=== PATIENT | female | born 1940 | race Caucasian/White ===

== ENCOUNTER 2017-07-25 11:55 | Inpatient (IN) | payer MEDICARE ==
[~2017-07-25] VITALS: Ht 167.6 cm; Wt 89.1 kg
[2017-07-25] VITALS (11 sets, daily range): BP systolic 125–141; BP diastolic 60–78; PULSE 84–96; RESP 16–24; TEMP 96.5–99.6; O2SAT 88–98
[~2017-07-25 11:55] MED LIST: ASPI81TA82 PO; METO25 PO; PRAV40TA PO
[2017-07-25] MEDS ORDERED: ONDANSETRON HCL 4 MG/2 ML VIAL IV PUSH ONE (12:45)
--- NOTE | 2017-07-25 12:59 | RADRPT ---
EXAM DATE/TIME: 07/25/2017 12:48 [place] COMPARISON: No previous studies available for comparison. INDICATIONS : Fever MEDICAL HISTORY : Hypertension. SURGICAL HISTORY : Pacemaker. Coronary artery stent. ENCOUNTER: Initial ACUITY: 2 days PAIN SCORE: 0/10 LOCATION: Bilateral chest FINDINGS: A single view of the chest demonstrates the lungs to be symmetrically aerated without evidence of mas s, infiltrate or effusion. The cardiomediastinal contours are mildly prominent. Pacer leads in right atrium and right ventricle. Osseous structures are intact. CONCLUSION: 1. No focal consolidation. Minimal basilar atelectasis. Pacer leads in right atrium and right ventric le. Cardiomegaly. Brandt Valenzuela MD on July 25, 2017 at 12:56 Board Certified Radiologist. This report was verified electronically.
[2017-07-25 13:14] LABS: AUTOMATED NEUTROPHIL # 5.4 TH/MM3 (1.8-7.7); BASOPHIL % 0.3 % (0.0-2.0); HEMOGLOBIN 13.9 GM/DL (11.6-15.3); LYMPH % 4.3 % (9.0-44.0); LYMPHOCYTE # 0.3 TH/MM3 (1.0-4.8); MEAN CELL VOLUME 82.7 FL (80.0-100.0); MEAN CORPUSCULAR HEMOGLOBIN 27.3 PG (27.0-34.0); MEAN PLATELET VOLUME 8.4 FL (7.0-11.0); MONO % 2.2 % (0.0-8.0); MONOCYTE # 0.1 TH/MM3 (0-0.9); NEUT % 93.2 % (16.0-70.0); PLATELET COUNT 314 TH/MM3 (150-450); RED BLOOD COUNT 5.08 MIL/MM3 (4.00-5.30); RED CELL DISTRIBUTION WIDTH 13.6 % (11.6-17.2); WHITE BLOOD COUNT 5.9 TH/MM3 (4.0-11.0)
--- NOTE | 2017-07-25 13:24 | PD ---
HPI Chief Complaint: GI Complaint Time Seen by Provider: 12:34 Travel History International Travel<30 days: No Contact w/Intl Traveler<30days: [place] Country Traveled to: [place] Traveled to known affect area: No History of Present Illness HPI 77-year-old female states she went on a cruise and now she's been having diarrhea, cough, congestion, nausea and general ill feeling. She denies other concurrent complaints. She states no specific known sick contacts. She denies any known fever. She feels worse when she moves around. She denies other modifying factors. Quality is cough. Severity is progressive. Duration is couple of days. PFSH Past Medical History Hx Anticoagulant Therapy: Yes (baby ASA) Cardiovascular Problems: Yes (pacemaker, HTN, stents) Diminished Hearing: No Hypertension: Yes Tetanus Vaccination: Unknown Past Surgical History Coronary Stent: Yes Pacemaker: Yes Social History Alcohol Use: No Tobacco Use: No Substance Use: No Allergies-Medications (Allergen,Severity, Reaction): Coded Allergies: No Known Allergies (Verified Adverse Reaction, Unknown, 07/25/17) Reported Meds & Prescriptions Reported Meds & Active Scripts Active Reported Aspir-81 (Aspirin) 81 Mg Tab 81 Mg PO DAILY Pravachol 40 Mg Tab 20 Mg PO DAILY Metoprolol Tartrate 25 mg (Metoprolol Tartrate) 25 Mg Tab 12.5 Mg PO BID Review of Systems Except as stated in HPI: all other systems reviewed are Neg Physical Exam Narrative GENERAL: Well-nourished, well-developed patient. Well-appearing SKIN: Warm and dry. HEAD: Normocephalic and atraumatic. EYES: No injection or drainage. ENT: No nasal drainage noted. NECK: Supple, trachea midline. CARDIOVASCULAR: Regular rate and rhythm RESPIRATORY: Breath sounds equal bilaterally. No accessory muscle use. GASTROINTESTINAL: Abdomen soft, non-tender, nondistended. EXTREMITIES: No edema. BACK: Nontender without obvious deformity. NEUROLOGICAL: Awake and alert. Motor and sensory grossly within normal limits. Normal speech. Data Data Last Documented VS Vital Signs Date Time Temp Pulse Resp B/P (MAP) Pulse Ox O2 Delivery O2 Flow Rate FiO2 07/25/17 13:39 84 16 141/78 (99) 97 Nasal Cannula 2.00 07/25/17 12:45 99.6 Orders Orders Complete Blood Count With Diff (07/25/17 12:45) Comprehensive Metabolic Panel (07/25/17 12:45) Prothrombin Time / Inr (Pt) (07/25/17 12:45) Act Partial Throm Time (Ptt) (07/25/17 12:45) Lactic Acid Sepsis Protocol (07/25/17 12:45) Magnesium (Mg) (07/25/17 12:45) Phosphorus (Po4) (07/25/17 12:45) Chest, Single Ap (07/25/17 12:45) Ecg Monitoring (07/25/17 12:45) Iv Access Insert/Monitor (07/25/17 12:45) Oximetry (07/25/17 12:45) Influenzae A/B Antigen (07/25/17 12:45) Ondansetron Inj (Zofran Inj) (07/25/17 12:45) Vancomycin Inj (Vancomycin Inj) (07/25/17 13:42) Cefepime Inj (Maxipime Inj) (07/25/17 13:42) Blood Culture (07/25/17 13:42) Sodium Chlorid 0.9% 500 Ml Inj (Ns 500 M (07/25/17 13:45) Potassium Chlor 20 Meq Premix (Kcl 20 Me (07/25/17 13:45) Admit Order (Ed Use Only) (07/25/17 14:23) Cefepime Inj (Maxipime Inj) (07/25/17 14:45) Vancomycin Consult Pharmacy (Vancomycin (07/25/17 14:45) Vancomycin Inj (Vancomycin Inj) (07/25/17 14:45) Consult Infectious Disease (07/25/17 ) Lactic Acid Sepsis Protocol (07/25/17 14:31) Metoprolol Tartrate (Lopressor) (07/25/17 21:00) Pravastatin (Pravachol) (07/25/17 21:00) Aspirin Chew (Aspirin Chew) (07/26/17 09:00) Admit To Inpatient (07/25/17 ) Vital Signs (Adult) Q4H (07/25/17 14:33) Activity Oob With Assistance (07/25/17 14:33) Maintenance Controller / Telemetry .CONTINUOUS (07/25/17 14:33) Diet Heart Healthy (07/25/17 Dinner) Sodium Chlor 0.9% 1000 Ml Inj (Ns 1000 M (07/25/17 14:33) Sodium Chloride 0.9% Flush (Ns Flush) (07/25/17 14:45) Sodium Chloride 0.9% Flush (Ns Flush) (07/25/17 21:00) Acetaminophen (Tylenol) (07/25/17 14:45) Ondansetron Inj (Zofran Inj) (07/25/17 14:45) Basic Metabolic Panel (Bmp) (07/26/17 06:00) Complete Blood Count With Diff (07/26/17 06:00) Resp Oxygen Al C Titrat 1-4 L (07/25/17 ) Case Management Consult (07/25/17 14:33) Enoxaparin Inj (Lovenox Inj) (07/25/17 14:45) Scd Bilateral/Knee High DARNELL.BID (07/25/17 14:33) [place] Bilateral/Knee High DARNELL.QSHIFT (07/25/17 14:33) Naloxone Inj (Narcan Inj) (07/25/17 14:45) Docusate Sodium-Senna (Angelica-Colace) (07/25/17 21:00) Magnesium Hydroxide Liq (Milk Of Magnesi (07/25/17 14:45) Sennosides (Senokot) (07/25/17 14:45) Bisacodyl Supp (Dulcolax Supp) (07/25/17 14:45) Lactulose Liq (Lactulose Liq) (07/25/17 14:45) Inpatient Certification (07/25/17 ) (Hub Use Only)Inp Phy Cons/Ref (07/25/17 ) Labs Laboratory Tests Test 07/25/17 13:04 White Blood Count 5.9 TH/MM3 Red Blood Count 5.08 MIL/MM3 Hemoglobin 13.9 GM/DL Hematocrit 42.0 % Mean Corpuscular Volume 82.7 FL Mean Corpuscular Hemoglobin 27.3 PG Mean Corpuscular Hemoglobin Concent 33.0 % Red Cell Distribution Width 13.6 % Platelet Count 314 TH/MM3 Mean Platelet Volume 8.4 FL Neutrophils (%) (Auto) 93.2 % Lymphocytes (%) (Auto) 4.3 % Monocytes (%) (Auto) 2.2 % Eosinophils (%) (Auto) 0.0 % Basophils (%) (Auto) 0.3 % Neutrophils # (Auto) 5.4 TH/MM3 Lymphocytes # (Auto) 0.3 TH/MM3 Monocytes # (Auto) 0.1 TH/MM3 Eosinophils # (Auto) 0.0 TH/MM3 Basophils # (Auto) 0.0 TH/MM3 CBC Comment DIFF FINAL Differential Comment Prothrombin Time 10.2 SEC Prothromb Time International Ratio 1.0 RATIO Activated Partial Thromboplast Time 25.7 SEC Blood Urea Nitrogen 28 MG/DL Creatinine 0.88 MG/DL Random Glucose 135 MG/DL Total Protein 7.6 GM/DL Albumin 3.7 GM/DL Calcium Level 8.8 MG/DL Phosphorus Level 3.2 MG/DL Magnesium Level 2.1 MG/DL Alkaline Phosphatase 132 U/L Aspartate Amino Transf (AST/SGOT) 22 U/L Alanine Aminotransferase (ALT/SGPT) 26 U/L Total Bilirubin 1.0 MG/DL Sodium Level 139 MEQ/L Potassium Level 2.7 MEQ/L Chloride Level 100 MEQ/L Carbon Dioxide Level 29.3 MEQ/L Anion Gap 10 MEQ/L Estimat Glomerular Filtration Rate 62 ML/MIN Lactic Acid Level 3.1 mmol/L MDM Medical Decision Making Medical Screen Exam Complete: Yes Emergency Medical Condition: Yes Medical Record Reviewed: Yes (past history confirmed) Interpretation(s) CBC & BMP Diagram 07/25/17 13:04 Albumin 3.7, Calcium Level 8.8, Magnesium Level 2.1, Aspartate Amino Transf (AST /SGOT) 22, Alanine Aminotransferase (ALT/SGPT) 26 Last 24 hours Impressions Chest X-Ray 07/25/17 1245 Signed Impressions: Service Date/Time: Tuesday, July 25, 2017 12:48 - CONCLUSION: 1. No focal consolidation. Minimal basilar atelectasis. Pacer leads in right atrium and right ventricle. Cardiomegaly. Brandt Valenzuela MD potassium placement started with 20meq of iv Differential Diagnosis URI, pneumonia, gastroenteritis, electrolyte abnormality, renal failure Narrative Course Will check blood work, influenza, chest x-ray and dose with Zofran and reevaluate patient 88% on room air, 2 liters placed, will monitor, given elevated lactate will draw blood cultures and place on cefepime and vancomycin, chest x-ray no acute with history of being on diuretic Will slowly give IV fluids. Start with 500 cc normal saline. No tachycardia or hypotension here. Given elevated lactate and hypoxia and hypokalemia she'll need to be admitted to the hospital for further care. Sepsis Criteria SIRS Criteria (2 or more): Heart rate over 90 Sepsis Criteria (SIRS+source): Infect source susp/known Severe Sepsis (+one): Lactate >2 Criteria Outcome: Meets severe sepsis criteria Physician Communication Physician Communication dr mark agrees to admit Diagnosis Primary Impression: Sepsis Qualified Codes: A41.9 - Sepsis, unspecified organism Additional Impressions: Hypoxia Hypokalemia Vomiting and diarrhea Upper respiratory disease Admitting Information Admitting Physician Requests: Admit Jaylin Gambino MD Jul 25, 2017 13:24
[2017-07-25 13:35] LABS: PROTHROMBIN TIME - PATIENT 10.2 SEC (9.8-11.6)
[2017-07-25 13:37] LABS: LACTIC ACID SEPSIS PROTOCOL 3.1 mmol/L (0.4-2.0)
[2017-07-25 13:38] LABS: ALBUMIN 3.7 GM/DL (3.4-5.0); ALT (GPT) 26 U/L (10-53); AST (GOT) 22 U/L (15-37); BICARBONATE 29.3 MEQ/L (21.0-32.0); BLOOD UREA NITROGEN 28 MG/DL (7-18); CALCIUM 8.8 MG/DL (8.5-10.1); CHLORIDE 100 MEQ/L (98-107); CREATININE 0.88 MG/DL (0.50-1.00); GLOMERULAR FILTRATION RATE 62 ML/MIN (>89); GLUCOSE,RANDOM 135 MG/DL (74-106); MAGNESIUM 2.1 MG/DL (1.5-2.5); SODIUM (NA) 139 MEQ/L (136-145)
[2017-07-25] MEDS ORDERED: VANCOMYCIN INJ 1,000 MG in SODIUM CHLOR 0.9% 250 ML INJ 250 ML IV STA (13:42)
[2017-07-25] MEDS ORDERED: CEFEPIME INJ 2,000 MG in SODIUM CHLORIDE 0.9% INJ 100 ML IV STA (13:42)
[2017-07-25] MEDS ORDERED: SODIUM CHLORID 0.9% 500 ML INJ 500 ML IV ONE (13:45)
[2017-07-25] MEDS ORDERED: POTASSIUM CHLOR 20 MEQ PREMIX 100 ML IV ONE (13:45)
[2017-07-25 13:49] LABS: ALKALINE PHOSPHATASE 132 U/L (45-117); PHOSPHORUS 3.2 MG/DL (2.5-4.9); TOTAL PROTEIN 7.6 GM/DL (6.4-8.2)
[2017-07-25] MEDS ORDERED: Vancomycin Consult Pharmacy 1 EA OTHER SCH (14:45)
[2017-07-25] MEDS ORDERED: SODIUM CHLORIDE 0.9% FLUSH 10 ML FLUSH IV FLUSH PRN (14:45)
[2017-07-25] MEDS ORDERED: NALOXONE HCL 0.4 MG/ML AMP IV PUSH PRN (14:45)
[2017-07-25] MEDS ORDERED: VANCOMYCIN INJ 200 ML IV SCH (14:45)
--- NOTE | 2017-07-25 15:46 | HHI.HP ---
[facility] Lin Squires MD Admission Diagnosis sepsis, hypokalemia, hypoxia Diagnoses: Chief Complaint: diarrhea Travel History International Travel<30 Days: No Contact w/Intl Traveler <30 Da: [place] Country Traveled to: [place] Traveled to Known Affected Are: No History of Present Illness 77-year-old female with h/o CAD, HTN, HLD, PM placed states she went on a cruise and now she's been having diarrhea, cough, congestion, nausea and general ill feeling. Symptoms started 2.3 days and worsened last night. Main worsening symptoms diarrhea many times cant count. Diarrhea is nonbloody. Was worse overnight. Today has diarrhea 2x. Some fevers associated today . no chills. She denies other concurrent complaints. She states no specific known sick contacts. She feels worse when she moves around. She denies other modifying factors. Severity is progressive. Duration is couple of days worsening last night. Review of Systems Except as stated in HPI: all other systems reviewed are Neg Past Family Social History Past Medical History CAD, HTN, HLD, PM placed Past Surgical History Cardiac cath, Left knee replacmenet PM Reported Medications Last Impressions Chest X-Ray 07/25/17 1245 Signed Impressions: Service Date/Time: Tuesday, July 25, 2017 12:48 - CONCLUSION: 1. No focal consolidation. Minimal basilar atelectasis. Pacer leads in right atrium and right ventricle. Cardiomegaly. Brandt Valenzuela MD Allergies: Coded Allergies: No Known Allergies (Verified Allergy, Unknown, 07/25/17) Family History Brother MM Dad IA Mother passed at old age , healthy Social History No illicit drug use, EtOH use or tobacco use. Physical Exam Vital Signs Vital Signs Date Time Temp Pulse Resp B/P (MAP) Pulse Ox O2 Delivery O2 Flow Rate FiO2 07/25/17 13:39 84 16 141/78 (99) 97 Nasal Cannula 2.00 07/25/17 13:35 Nasal Cannula 2.00 07/25/17 13:30 88 Room Air 07/25/17 12:51 92 07/25/17 12:46 16 07/25/17 12:45 99.6 96 16 141/78 (99) 95 Room Air 07/25/17 12:10 99.4 95 24 125/60 (81) Physical Exam GENERAL: This is a well-nourished, well-developed patient, in no apparent distress. CARDIOVASCULAR: Regular rate and rhythm without murmurs, gallops, or rubs. RESPIRATORY: Clear to auscultation. Breath sounds equal bilaterally. No wheezes , rales, or rhonchi. GASTROINTESTINAL: Abdomen soft, non-tender, nondistended. No hepato-splenomegaly , or palpable masses. No guarding. MUSCULOSKELETAL: Extremities without clubbing, cyanosis, or edema. No joint tenderness, effusion, or edema noted. No calf tenderness. Negative Homans sign bilaterally. NEUROLOGICAL: Awake and alert. Cranial nerves II through XII intact. Motor and sensory grossly within normal limits. Five out of 5 muscle strength in all muscle groups. Normal speech. Laboratory Laboratory Tests Test 07/25/17 13:04 White Blood Count 5.9 Red Blood Count 5.08 Hemoglobin 13.9 Hematocrit 42.0 Mean Corpuscular Volume 82.7 Mean Corpuscular Hemoglobin 27.3 Mean Corpuscular Hemoglobin Concent 33.0 Red Cell Distribution Width 13.6 Platelet Count 314 Mean Platelet Volume 8.4 Neutrophils (%) (Auto) 93.2 Lymphocytes (%) (Auto) 4.3 Monocytes (%) (Auto) 2.2 Eosinophils (%) (Auto) 0.0 Basophils (%) (Auto) 0.3 Neutrophils # (Auto) 5.4 Lymphocytes # (Auto) 0.3 Monocytes # (Auto) 0.1 Eosinophils # (Auto) 0.0 Basophils # (Auto) 0.0 CBC Comment DIFF FINAL Differential Comment Prothrombin Time 10.2 Prothromb Time International Ratio 1.0 Activated Partial Thromboplast Time 25.7 Blood Urea Nitrogen 28 Creatinine 0.88 Random Glucose 135 Total Protein 7.6 Albumin 3.7 Calcium Level 8.8 Phosphorus Level 3.2 Magnesium Level 2.1 Alkaline Phosphatase 132 Aspartate Amino Transf (AST/SGOT) 22 Alanine Aminotransferase (ALT/SGPT) 26 Total Bilirubin 1.0 Sodium Level 139 Potassium Level 2.7 Chloride Level 100 Carbon Dioxide Level 29.3 Anion Gap 10 Estimat Glomerular Filtration Rate 62 Lactic Acid Level 3.1 Date/Time Source Procedure Growth Status 07/25/17 14:03 Blood Peripheral Aerobic Blood Culture Pending Received 07/25/17 14:03 Blood Peripheral Anaerobic Blood Culture Pending Received 07/25/17 13:00 Nasal Aspirate Influenza Types A,B Antigen (FLORIAN) - Final NEGATIVE FOR FLU A AND B ANTIGEN.... Complete Result Diagram: 07/25/17 1304 07/25/17 1304 Caprini VTE Risk Assessment Caprini VTE Risk Assessment: Mod/High Risk (score >= 2) Caprini Risk Assessment Model Point Value = 1 Point Value = 2 Point Value = 3 Point Value = 5 Age 41-60 Minor surgery BMI > 25 kg/m2 Swollen legs Varicose veins or History of unexplained or recurrent spontaneous Oral contraceptives or hormone replacement Sepsis (< 1 month) Serious lung disease, including pneumonia (< 1 month) Abnormal pulmonary function Acute myocardial infarction Congestive heart failure (< 1 month) History of inflammatory bowel disease Medical patient at bed rest Age 61-74 Arthroscopic surgery Major open surgery (> 45 min) Laparoscopic surgery (> 45 min) Malignancy Confined to bed (> 72 hours) Immobilizing plaster cast Central venous access Age >= 75 History of VTE Family history of VTE Factor V Leiden Prothrombin [id number] Lupus anticoagulant Anticardiolipin antibodies Elevated serum homocysteine Heparin-induced thrombocytopenia Other congenital or acquired thrombophilia Stroke (< 1 month) Elective arthroplasty Hip, pelvis, or leg fracture Acute spinal cord injury (< 1 month) Prophylaxis Regimen Total Risk Factor Score Risk Level Prophylaxis Regimen 0-1 Low Early ambulation 2 Moderate Order ONE of the following: *Sequential Compression Device (SCD) *Heparin 5000 units SQ BID 3-4 Higher Order ONE of the following medications: *Heparin 5000 units SQ TID *Enoxaparin/Lovenox 40 mg SQ daily (WT < 150 kg, CrCl > 30 mL/min) *Enoxaparin/Lovenox 30 mg SQ daily (WT < 150 kg, CrCl > 10-29 mL/min) *Enoxaparin/Lovenox 30 mg SQ BID (WT < 150 kg, CrCl > 30 mL/min) AND/OR *Sequential Compression Device (SCD) 5 or more Highest Order ONE of the following medications: *Heparin 5000 units SQ TID (Preferred with Epidurals) *Enoxaparin/Lovenox 40 mg SQ daily (WT < 150 kg, CrCl > 30 mL/min) *Enoxaparin/Lovenox 30 mg SQ daily (WT < 150 kg, CrCl > 10-29 mL/min) *Enoxaparin/Lovenox 30 mg SQ BID (WT < 150 kg, CrCl > 30 mL/min) AND *Sequential Compression Device (SCD) Assessment and Plan Assessment and Plan Severe SIRS/poss sepsis ( fever, tachycardia, elevated LA). Elevated LA repeat until NL Hypokalemia: potassium placement Hypoxia. Acute respiratory failure, patient 88% on room air on admission, placed on 2 liters Monitor Hypokalemia Vomiting and diarrhea Upper respiratory disease HTN, CAD restart home meds . monitor VS and adjust meds as need Blood cultures obtained in the ED and started cefepime and vancomycin Chest x-ray no acute findings IVF Monitor on Telemetry check for C diff , stool studies Consult ID specialist Antiemetics as need DVT ppx SCD/TEDS/lovenox Discussed Condition With patient. nurse, ED physician Physician Certification 2 Midnight Certification Type: Admission for Inpatient Services Order for Inpatient Services The services are ordered in accordance with Medicare regulations or non- Medicare payer requirements, as applicable. In the case of services not specified as inpatient-only, they are appropriately provided as inpatient services in accordance with the 2-midnight benchmark. Estimated LOS (days): 3 days is the estimated time the patient will need to remain in the hospital, assuming treatment plan goals are met and no additional complications. Post-Hospital Plan: Home Courtney Osie MD Jul 25, 2017 15:46
[2017-07-25] MEDS ORDERED: BISACODYL 10 MG SUPP RECTAL PRN (16:00)
[2017-07-25] MEDS: SODIUM CHLOR 0.9% 1000 ML INJ 1,000 ML IV SCH (16:00)
[2017-07-25] MEDS ORDERED: MAGNESIUM HYDROXIDE SUSP 30 ML CUP PO PRN (16:00)
[2017-07-25] MEDS ORDERED: CEFEPIME INJ 1,000 MG in SODIUM CHLORIDE 0.9% INJ 100 ML IV SCH (16:00)
[2017-07-25] MEDS ORDERED: ONDANSETRON HCL 4 MG/2 ML VIAL IVP PRN (16:00)
[2017-07-25] MEDS ORDERED: LACTULOSE SYRUP 20 GM/30 ML CUP PO PRN (16:00)
[2017-07-25] MEDS ORDERED: SENNOSIDES 8.6 MG TAB PO PRN (16:00)
[2017-07-25] MEDS: ENOXAPARIN SODIUM 40 MG/0.4 ML SYRINGE SQ SCH (16:58)
[2017-07-25] MEDS: LACTOBACILLUS ACIDOPHILUS TAB PO SCH (22:01)
[2017-07-25] MEDS: DOCUSATE SODIUM 50 MG/SENNA 8.6 MG TAB PO SCH (22:02)
[2017-07-25] MEDS: PRAVASTATIN SOD 20 MG TAB PO SCH (22:02)
[2017-07-25] MEDS: METOPROLOL TARTRATE 25 MG TAB PO SCH (22:02)
[2017-07-25] MEDS: SODIUM CHLORIDE 0.9% FLUSH 10 ML FLUSH IV FLUSH SCH (22:02)
[2017-07-26] VITALS (8 sets, daily range): BP systolic 103–138; BP diastolic 52–72; PULSE 65–88; RESP 16–20; TEMP 97.1–99.6; O2SAT 90–95
[2017-07-26] MEDS: CEFEPIME INJ 1,000 MG in SODIUM CHLORIDE 0.9% INJ 100 ML IV SCH ×3 (01:09→18:05)
[2017-07-26] MEDS: SODIUM CHLOR 0.9% 1000 ML INJ 1,000 ML IV SCH (03:17)
[2017-07-26 08:05] LABS: AUTOMATED NEUTROPHIL # 3.1 TH/MM3 (1.8-7.7); BASOPHIL % 0.2 % (0.0-2.0); EOSINOPHIL # 0.1 TH/MM3 (0-0.4); EOSINOPHIL % 1.3 % (0.0-4.0); HEMATOCRIT 34.7 % (35.0-46.0); HEMOGLOBIN 11.8 GM/DL (11.6-15.3); LYMPH % 18.7 % (9.0-44.0); LYMPHOCYTE # 0.8 TH/MM3 (1.0-4.8); MEAN CELL VOLUME 83.4 FL (80.0-100.0); MEAN CORPUSCULAR HEMOGLOBIN 28.4 PG (27.0-34.0); MEAN PLATELET VOLUME 8.4 FL (7.0-11.0); MONO % 5.9 % (0.0-8.0); MONOCYTE # 0.3 TH/MM3 (0-0.9); NEUT % 73.9 % (16.0-70.0); PLATELET COUNT 229 TH/MM3 (150-450); RED BLOOD COUNT 4.16 MIL/MM3 (4.00-5.30); RED CELL DISTRIBUTION WIDTH 14.1 % (11.6-17.2); WHITE BLOOD COUNT 4.3 TH/MM3 (4.0-11.0)
[2017-07-26 08:34] LABS: BICARBONATE 29.2 MEQ/L (21.0-32.0); CALCIUM 7.8 MG/DL (8.5-10.1); CREATININE 0.54 MG/DL (0.50-1.00)
--- NOTE | 2017-07-26 09:08 | HHI.PR ---
Subjective Remarks The patient is in bed she feels improved since yesterday. Had 5 times diarrhea nonbloody since last night. No blood in it. No fever or chills overnight. Feels tired. Denies nausea, vomiting, she is able to eat some food however she doesn't have much appetite. Denies chest pain or shortness of breath, no cough no fever or chills. No urinary complaints. Objective Vitals Vital Signs Date Time Temp Pulse Resp B/P (MAP) Pulse Ox O2 Delivery O2 Flow Rate FiO2 07/26/17 07:50 97.6 69 20 109/52 (71) 92 07/26/17 04:00 98.6 78 18 138/72 (94) 95 07/26/17 02:49 81 07/26/17 00:00 99.6 88 16 132/63 (86) 94 07/25/17 21:25 95 Nasal Cannula 2.00 07/25/17 20:00 99.1 91 18 132/67 (88) 94 07/25/17 19:10 Nasal Cannula 2.00 07/25/17 19:10 88 07/25/17 16:57 95 Nasal Cannula 2.00 07/25/17 16:15 96.5 84 20 130/61 (84) 98 07/25/17 15:56 07/25/17 15:55 85 16 140/60 (86) 95 Nasal Cannula 2.00 07/25/17 13:39 84 16 141/78 (99) 97 Nasal Cannula 2.00 07/25/17 13:35 Nasal Cannula 2.00 07/25/17 13:30 88 Room Air 07/25/17 12:51 92 07/25/17 12:46 16 07/25/17 12:45 99.6 96 16 141/78 (99) 95 Room Air 07/25/17 12:10 99.4 95 24 125/60 (81) I/O 07/25/17 07/25/17 07/25/17 07/26/17 07/26/17 07/26/17 07:00 15:00 23:00 07:00 15:00 23:00 Intake Total 1152 ml 1873 ml Balance 1152 ml 1873 ml Intake Oral 380 ml IV Total 1152 ml 1493 ml # Voids 2 # Bowel Movements 1 Result Diagram: 07/26/17 0707 07/26/17 0707 Imaging Last Impressions Chest X-Ray 07/25/17 1245 Signed Impressions: Service Date/Time: Tuesday, July 25, 2017 12:48 - CONCLUSION: 1. No focal consolidation. Minimal basilar atelectasis. Pacer leads in right atrium and right ventricle. Cardiomegaly. Brandt Valenzuela MD Objective Remarks GENERAL: This is a well-nourished, well-developed patient, in no apparent distress. CARDIOVASCULAR: Regular rate and rhythm without murmurs, gallops, or rubs. RESPIRATORY: Clear to auscultation. Breath sounds equal bilaterally. No wheezes , rales, or rhonchi. GASTROINTESTINAL: Abdomen soft, non-tender, nondistended. No hepato-splenomegaly , or palpable masses. No guarding. MUSCULOSKELETAL: Extremities without clubbing, cyanosis, or edema. No joint tenderness, effusion, or edema noted. No calf tenderness. Negative Homans sign bilaterally. NEUROLOGICAL: Awake and alert. Cranial nerves II through XII intact. Motor and sensory grossly within normal limits. Five out of 5 muscle strength in all muscle groups. Normal speech. A/P Assessment and Plan Severe SIRS/poss sepsis ( fever, tachycardia, elevated LA). Elevated LA repeat NL Hypokalemia: potassium placement start IVF 1/2 NS with 20 mEq KCl supplement as persistent low K Hypoxia. Acute respiratory failure, patient 88% on room air on admission, placed on 2 liters Monitor Hypokalemia Vomiting and diarrhea Upper respiratory disease. Influenza is negative. HTN, CAD restart home meds . monitor VS and adjust meds as need Blood cultures obtained in the ED and started cefepime and vancomycin Chest x-ray no acute findings IVF Monitor on Telemetry check for C diff , stool studies Consult ID specialist Antiemetics as need DVT ppx SCD/TEDS/lovenox Discussed Condition With patient, nurse, family at bedside Courtney Osei MD Jul 26, 2017 09:08
[2017-07-26] MEDS ORDERED: POTASSIUM CHLORIDE 10 MEQ CONTROLLED RELEASE TAB PO ONE (10:00)
[2017-07-26] MEDS: LACTOBACILLUS ACIDOPHILUS TAB PO SCH ×2 (10:09→21:57)
[2017-07-26] MEDS: SODIUM CHLORIDE 0.9% FLUSH 10 ML FLUSH IV FLUSH SCH ×2 (10:09→21:57)
[2017-07-26] MEDS: METOPROLOL TARTRATE 25 MG TAB PO SCH ×2 (10:09→21:57)
[2017-07-26] MEDS: ASPIRIN 81 MG CHEW TAB CHEW SCH (10:09)
[2017-07-26] MEDS: 1/2 NS + KCL 20 MEQ INJ 1,000 ML IV SCH (10:12)
[2017-07-26] MEDS: DOCUSATE SODIUM 50 MG/SENNA 8.6 MG TAB PO SCH ×2 (10:12→21:00)
[2017-07-26] MEDS ORDERED: POTASSIUM CHLORIDE 25 MEQ EFFERVESCENT TAB PO ONE (12:00)
--- NOTE | 2017-07-26 12:29 | PD.CONS ---
History of Present Illness Service ID CONSULT DR ROUSSEAU Consult Requested By DR TIRADO Reason for Consult DIARRHEA Primary Care Physician Lin Squires MD Diagnoses: (1) Vomiting and diarrhea History of Present Illness 77 YR OLD ADMITTED WITH NVD. SHE WAS IN [facility]OUTINE [facility] UNTIL FRIDAY WHEN SHE STARTED HAVING NAUSEA, VOMITING AND DIARRHEA WHILE ON A [employer] CRUISE TO [place]. SHE HAD LOW GRADE TEMPS. NO OTHER SICK CONTACTS, SHE WAS WITH A FRIEND WHO DID NOT HAVE ANY OF THESE SYMPTOMS. SHE HAD NOT BEEN ON ANY ANTIBIOTICS RECENTLY. NO SOB, NO COUGH. FLU WAS NEGATIVE. SHE HAS NO PRIOR HISTORY OF DIVERTICULITIS. SHE IS ON CEFEPIME/VANCOMYCIN. Review of Systems Constitutional: COMPLAINS OF: Fever Respiratory: DENIES: Cough Cardiovascular: DENIES: Palpitations Gastrointestinal: COMPLAINS OF: Diarrhea, Nausea, Vomiting, DENIES: Black stools Genitourinary: DENIES: Urinary frequency Musculoskeletal: DENIES: Neck pain Neurologic: DENIES: Localized weakness Psychiatric: DENIES: Depression Past Family Social History Allergies: Coded Allergies: No Known Allergies (Verified Allergy, Unknown, 07/25/17) Past Medical History Past Medical History CAD, HTN, HLD, PM placed Past Surgical History Past Surgical History Cardiac cath, Left knee replacmenet PM Reported Medications Reported Medications Last Impressions Chest X-Ray 07/25/17 1245 Signed Impressions: Service Date/Time: Friday, July 25, 2017 12:48 - CONCLUSION: 1. No focal consolidation. Minimal basilar atelectasis. Pacer leads in right atrium and right ventricle. Cardiomegaly. Brandt Valenzuela MD Family History Allergies: Coded Allergies: No Known Allergies (Verified Allergy, Unknown, 07/25/17) Family History Brother MM Dad [place] Mother passed at old age , healthy Social History Social History No illicit drug use, EtOH use or tobacco use. Physical Exam Vital Signs Vital Signs Date Time Temp Pulse Resp B/P (MAP) Pulse Ox O2 Delivery O2 Flow Rate FiO2 07/26/17 07:50 97.6 69 20 109/52 (71) 92 07/26/17 04:00 98.6 78 18 138/72 (94) 95 07/26/17 02:49 81 07/26/17 00:00 99.6 88 16 132/63 (86) 94 07/25/17 21:25 95 Nasal Cannula 2.00 07/25/17 20:00 99.1 91 18 132/67 (88) 94 07/25/17 19:10 Nasal Cannula 2.00 07/25/17 19:10 88 07/25/17 16:57 95 Nasal Cannula 2.00 07/25/17 16:15 96.5 84 20 130/61 (84) 98 07/25/17 15:56 07/25/17 15:55 85 16 140/60 (86) 95 Nasal Cannula 2.00 07/25/17 13:39 84 16 141/78 (99) 97 Nasal Cannula 2.00 07/25/17 13:35 Nasal Cannula 2.00 07/25/17 13:30 88 Room Air 07/25/17 12:51 92 07/25/17 12:46 16 07/25/17 12:45 99.6 96 16 141/78 (99) 95 Room Air Physical Exam GENERAL: This is a well-nourished, well-developed patient, in no apparent distress. SKIN: No rashes, ecchymoses or lesions. Cool and dry. HEAD: Atraumatic. Normocephalic. No temporal or scalp tenderness. EYES: Pupils equal round and reactive. Extraocular motions intact. No scleral icterus. No injection or drainage. ENT: Nose without bleeding, purulent drainage or septal hematoma. Throat without erythema, tonsillar hypertrophy or exudate. Uvula midline. Airway patent. NECK: Trachea midline. No JVD or lymphadenopathy. Supple, nontender, no meningeal signs. CARDIOVASCULAR: Regular rate and rhythm without murmurs, gallops, or rubs. RESPIRATORY: Clear to auscultation. Breath sounds equal bilaterally. No wheezes , rales, or rhonchi. GASTROINTESTINAL: Abdomen soft, non-tender, nondistended. No hepato-splenomegaly , or palpable masses. No guarding. MUSCULOSKELETAL: Extremities without clubbing, cyanosis, or edema. No joint tenderness, effusion, or edema noted. No calf tenderness. Negative Homans sign bilaterally. NEUROLOGICAL: Awake and alert. Cranial nerves II through XII intact. Motor and sensory grossly within normal limits. Five out of 5 muscle strength in all muscle groups. Normal speech. Laboratory Laboratory Tests Test 07/25/17 13:04 07/25/17 21:41 07/26/17 07:07 White Blood Count 5.9 4.3 Red Blood Count 5.08 4.16 Hemoglobin 13.9 11.8 Hematocrit 42.0 34.7 Mean Corpuscular Volume 82.7 83.4 Mean Corpuscular Hemoglobin 27.3 28.4 Mean Corpuscular Hemoglobin Concent 33.0 34.0 Red Cell Distribution Width 13.6 14.1 Platelet Count 314 229 Mean Platelet Volume 8.4 8.4 Neutrophils (%) (Auto) 93.2 73.9 Lymphocytes (%) (Auto) 4.3 18.7 Monocytes (%) (Auto) 2.2 5.9 Eosinophils (%) (Auto) 0.0 1.3 Basophils (%) (Auto) 0.3 0.2 Neutrophils # (Auto) 5.4 3.1 Lymphocytes # (Auto) 0.3 0.8 Monocytes # (Auto) 0.1 0.3 Eosinophils # (Auto) 0.0 0.1 Basophils # (Auto) 0.0 0.0 CBC Comment DIFF FINAL DIFF FINAL Differential Comment Prothrombin Time 10.2 Prothromb Time International Ratio 1.0 Activated Partial Thromboplast Time 25.7 Blood Urea Nitrogen 28 22 Creatinine 0.88 0.54 Random Glucose 135 98 Total Protein 7.6 Albumin 3.7 Calcium Level 8.8 7.8 Phosphorus Level 3.2 Magnesium Level 2.1 Alkaline Phosphatase 132 Aspartate Amino Transf (AST/SGOT) 22 Alanine Aminotransferase (ALT/SGPT) 26 Total Bilirubin 1.0 Sodium Level 139 143 Potassium Level 2.7 2.6 Chloride Level 100 108 Carbon Dioxide Level 29.3 29.2 Anion Gap 10 6 Estimat Glomerular Filtration Rate 62 109 Lactic Acid Level 3.1 Date/Time Source Procedure Growth Status 07/25/17 14:03 Blood Peripheral Aerobic Blood Culture - Preliminary NO GROWTH IN 1 DAY Resulted 07/25/17 14:03 Blood Peripheral Anaerobic Blood Culture - Preliminary NO GROWTH IN 1 DAY Resulted 07/25/17 13:00 Nasal Aspirate Influenza Types A,B Antigen (FLORIAN) - Final NEGATIVE FOR FLU A AND B ANTIGEN.... Complete Result Diagram: 07/26/17 0707 07/26/17 0707 Assessment and Plan Problem List: (1) Vomiting and diarrhea ICD Codes: R11.10 - Vomiting, unspecified; R19.7 - Diarrhea, unspecified Status: Acute Plan: ADD FLAGYL CHECK STOOL STUDIES FU ON CDT ORDERED FOR GIARDIA/CRYPTOSPORIDIA CHECK STOOL CULTURE FOR OVA PARASITE CHECK STOOL FOR SALMONELLA PT ON CEFEPIME/ VANCO IF CULTURES STAY NEGATIVE WOULD DC NOT SURE WHAT WE ARE TREATING AND COULD MAKE DIARRHEA WORSE Lissy Encarnacion Jul 26, 2017 12:29
[2017-07-26] MEDS: METRONIDAZOLE 500 MG/100 ML ISONTONIC SOLN IV SCH ×2 (14:00→21:57)
[2017-07-26] MEDS: CHOLESTYRAMINE 4 GM PACKET PO SCH ×3 (14:00→21:57)
[2017-07-26] MEDS ORDERED: VANCOMYCIN 1,500 MG/NS 500 ML IV SCH ×2 (14:00)
[2017-07-26] MEDS ORDERED: MAGNESIUM OXIDE 400 MG TAB PO ONE (15:00)
[2017-07-26] MEDS: ENOXAPARIN SODIUM 40 MG/0.4 ML SYRINGE SQ SCH (16:03)
[2017-07-26] MEDS: PRAVASTATIN SOD 20 MG TAB PO SCH (21:57)
[2017-07-27] VITALS (8 sets, daily range): BP systolic 104–115; BP diastolic 52–63; PULSE 59–98; RESP 12–18; TEMP 96.3–98.7; O2SAT 91–95
[2017-07-27] MEDS: CEFEPIME INJ 1,000 MG in SODIUM CHLORIDE 0.9% INJ 100 ML IV SCH (00:52)
[2017-07-27] MEDS: 1/2 NS + KCL 20 MEQ INJ 1,000 ML IV SCH ×4 (00:53→23:35)
[2017-07-27] MEDS: METRONIDAZOLE 500 MG/100 ML ISONTONIC SOLN IV SCH (05:59)
[2017-07-27] MEDS: CHOLESTYRAMINE 4 GM PACKET PO SCH ×4 (08:53→22:16)
--- NOTE | 2017-07-27 08:53 | HHI.PR ---
Subjective Remarks Patient seen and evaluated today in follow-up for diarrhea. She reports abdominal discomfort is better and frequency of still has tapered off. Objective Vitals Vital Signs Date Time Temp Pulse Resp B/P (MAP) Pulse Ox O2 Delivery O2 Flow Rate FiO2 07/27/17 04:54 96.5 65 16 108/52 (70) 91 07/27/17 01:24 97.6 60 16 107/53 (71) 91 07/26/17 21:46 97.7 70 16 118/55 (76) 94 07/26/17 21:46 94 Nasal Cannula 2.00 07/26/17 20:00 67 07/26/17 20:00 Room Air 07/26/17 15:56 98.4 65 20 104/55 (71) 90 07/26/17 12:00 Nasal Cannula 2.00 07/26/17 11:50 97.1 65 20 103/57 (72) 92 07/26/17 10:09 92 Nasal Cannula 2.00 I/O 07/26/17 07/26/17 07/26/17 07/27/17 07/27/17 07/27/17 07:00 15:00 23:00 07:00 15:00 23:00 Intake Total 1873 ml 500 ml 1632 ml 400 ml Balance 1873 ml 500 ml 1632 ml 400 ml Intake Oral 380 ml 760 ml IV Total 1493 ml 500 ml 872 ml 400 ml # Voids 2 4 2 # Bowel Movements 1 4 0 Result Diagram: 07/26/17 0707 07/26/17 0707 Objective Remarks GENERAL: This is a well-nourished, well-developed patient, in no apparent distress. CARDIOVASCULAR: Regular rate and rhythm without murmurs, gallops, or rubs. RESPIRATORY: Clear to auscultation. Breath sounds equal bilaterally. No wheezes , rales, or rhonchi. GASTROINTESTINAL: Abdomen soft, non-tender, nondistended. Normal active bowel sounds MUSCULOSKELETAL: Extremities without clubbing, cyanosis, or edema. NEURO: Alert & Oriented x4 to person, place, time, situation. Moves all ext x4 A/P Problem List: (1) Gastritis ICD Code: K29.70 - Gastritis, unspecified, without bleeding Plan: Continue empiric Flagyl, patient education provided Encourage oral intake IV hydration Supportive care with antiemetics (2) Hypokalemia ICD Code: E87.6 - Hypokalemia Status: Acute Plan: Labs pending today Status post replacement Discharge Planning Likely discharge in Amarilis Iverson MD Jul 27, 2017 08:53
[2017-07-27] MEDS: ACETAMINOPHEN 325 MG TAB PO PRN ×3 (08:54→17:14)
[2017-07-27] MEDS: METOPROLOL TARTRATE 25 MG TAB PO SCH ×2 (08:54→22:17)
[2017-07-27] MEDS: ASPIRIN 81 MG CHEW TAB CHEW SCH (08:54)
[2017-07-27] MEDS: LACTOBACILLUS ACIDOPHILUS TAB PO SCH ×2 (08:54→22:17)
[2017-07-27] MEDS: DOCUSATE SODIUM 50 MG/SENNA 8.6 MG TAB PO SCH ×2 (08:54→22:17)
[2017-07-27] MEDS: SODIUM CHLORIDE 0.9% FLUSH 10 ML FLUSH IV FLUSH SCH ×2 (08:55→21:00)
[2017-07-27] MEDS: metroNIDAZOLE 500 MG TAB PO SCH ×2 (09:33→16:51)
[2017-07-27 10:11] LABS: AUTOMATED NEUTROPHIL # 4.3 TH/MM3 (1.8-7.7); BASOPHIL % 0.4 % (0.0-2.0); EOSINOPHIL # 0.2 TH/MM3 (0-0.4); EOSINOPHIL % 3.3 % (0.0-4.0); HEMATOCRIT 32.5 % (35.0-46.0); HEMOGLOBIN 10.7 GM/DL (11.6-15.3); LYMPH % 17.3 % (9.0-44.0); MEAN CELL VOLUME 83.1 FL (80.0-100.0); MEAN CORPUSCULAR HEMOGLOBIN 27.4 PG (27.0-34.0); MEAN PLATELET VOLUME 8.7 FL (7.0-11.0); MONO % 6.6 % (0.0-8.0); MONOCYTE # 0.4 TH/MM3 (0-0.9); NEUT % 72.4 % (16.0-70.0); PLATELET COUNT 224 TH/MM3 (150-450); RED BLOOD COUNT 3.91 MIL/MM3 (4.00-5.30); RED CELL DISTRIBUTION WIDTH 14.3 % (11.6-17.2); WHITE BLOOD COUNT 5.9 TH/MM3 (4.0-11.0)
[2017-07-27 10:30] LABS: CALCIUM 8.1 MG/DL (8.5-10.1); MAGNESIUM 1.9 MG/DL (1.5-2.5)
[2017-07-27 10:45] LABS: CREATININE 0.53 MG/DL (0.50-1.00)
[2017-07-27] MEDS ORDERED: POTASSIUM CHLORIDE 10 MEQ CONTROLLED RELEASE TAB PO ONE (11:00)
[2017-07-27] MEDS: ENOXAPARIN SODIUM 40 MG/0.4 ML SYRINGE SQ SCH (16:50)
[2017-07-27] MEDS: PRAVASTATIN SOD 20 MG TAB PO SCH (22:17)
[2017-07-28] MEDS: metroNIDAZOLE 500 MG TAB PO SCH ×2 (01:13→11:50)
[2017-07-28] MEDS: ACETAMINOPHEN 325 MG TAB PO PRN (01:22)
[2017-07-28 07:50] VITALS: BP_SYST 134; BP_SYST 99; BP_DIAS 56; BP_DIAS 63; PULSE 65; PULSE 73; RESP 20; TEMP 96.7; TEMP 98; O2SAT 97
[2017-07-28 08:30] VITALS: O2SAT 94
[2017-07-28] MEDS ORDERED: POTASSIUM CHLORIDE 20 MEQ CONTROLLED RELEASE TAB PO SCH (09:00)
[2017-07-28] MEDS: CHOLESTYRAMINE 4 GM PACKET PO SCH ×2 (09:00→11:50)
[2017-07-28] MEDS: DOCUSATE SODIUM 50 MG/SENNA 8.6 MG TAB PO SCH (09:00)
--- NOTE | 2017-07-28 11:20 | HHI.IDPN ---
Subjective Subjective Remarks Bowel movements more formed No nausea or vomiting Some abdominal cramping C/o some wheezing Antibiotics Flagyl Lines Peripheral Past Medical History CAD, HTN, HLD, PM placed Past Surgical History Past Surgical History Cardiac cath, Left knee replacmenet PM Allergies: Coded Allergies: No Known Allergies (Verified Allergy, Unknown, 07/25/17) Review of Systems Constitutional Constitutional Remarks No fever Objective . Vital Signs Date Time Temp Pulse Resp B/P (MAP) Pulse Ox O2 Delivery O2 Flow Rate FiO2 07/28/17 08:30 94 21 07/28/17 08:29 Room Air 07/28/17 07:50 98.0 73 20 134/63 (86) 07/28/17 04:26 07/28/17 02:22 18 07/27/17 23:24 97.1 66 18 108/59 (75) 93 07/27/17 22:00 93 21 07/27/17 21:01 96.3 64 16 111/55 (73) 95 07/27/17 20:00 95 Room Air 07/27/17 16:00 98.7 59 14 104/57 (73) 93 07/27/17 12:00 98.1 61 14 109/62 (78) 92 . Laboratory Tests Test 07/27/17 09:30 White Blood Count 5.9 TH/MM3 Red Blood Count 3.91 MIL/MM3 Hemoglobin 10.7 GM/DL Hematocrit 32.5 % Mean Corpuscular Volume 83.1 FL Mean Corpuscular Hemoglobin 27.4 PG Mean Corpuscular Hemoglobin Concent 33.0 % Red Cell Distribution Width 14.3 % Platelet Count 224 TH/MM3 Mean Platelet Volume 8.7 FL Neutrophils (%) (Auto) 72.4 % Lymphocytes (%) (Auto) 17.3 % Monocytes (%) (Auto) 6.6 % Eosinophils (%) (Auto) 3.3 % Basophils (%) (Auto) 0.4 % Neutrophils # (Auto) 4.3 TH/MM3 Lymphocytes # (Auto) 1.0 TH/MM3 Monocytes # (Auto) 0.4 TH/MM3 Eosinophils # (Auto) 0.2 TH/MM3 Basophils # (Auto) 0.0 TH/MM3 CBC Comment DIFF FINAL Differential Comment Laboratory Tests Test 07/26/17 12:20 07/27/17 09:30 07/28/17 10:50 Lactic Acid Level 1.0 mmol/L Blood Urea Nitrogen 10 MG/DL Creatinine 0.53 MG/DL Random Glucose 94 MG/DL Calcium Level 8.1 MG/DL Magnesium Level 1.9 MG/DL Sodium Level 143 MEQ/L Potassium Level 3.2 MEQ/L Chloride Level 111 MEQ/L Carbon Dioxide Level 24.0 MEQ/L Anion Gap 8 MEQ/L Estimat Glomerular Filtration Rate 112 ML/MIN Microbiology Date/Time Source Procedure Growth Status 07/25/17 14:03 Blood Peripheral Aerobic Blood Culture - Preliminary NO GROWTH IN 3 DAYS Resulted 07/25/17 14:03 Blood Peripheral Anaerobic Blood Culture - Preliminary NO GROWTH IN 3 DAYS Resulted 07/25/17 13:35 Blood Peripheral Aerobic Blood Culture - Preliminary NO GROWTH IN 3 DAYS Resulted 07/25/17 13:35 Blood Peripheral Anaerobic Blood Culture - Preliminary NO GROWTH IN 3 DAYS Resulted 07/26/17 15:40 Stool Stool Cyclospora Exam Pending Received 07/26/17 15:40 Stool Stool Cryptosporidium Exam Pending Received 07/26/17 15:40 Stool Stool Giardia Antigen (FLORIAN) Pending Received 07/25/17 13:00 Nasal Aspirate Influenza Types A,B Antigen (FLORIAN) - Final NEGATIVE FOR FLU A AND B ANTIGEN.... Complete Physical Exam GENERAL: This is a chronically ill- somewhat anxious SKIN: No rashes, ecchymoses or lesions. Cool and dry. HEAD: Atraumatic. Normocephalic. No temporal or scalp tenderness. EYES: Pupils equal round and reactive. Extraocular motions intact. No scleral icterus. No injection or drainage. ENT: Nose without bleeding, purulent drainage or septal hematoma. Throat without erythema, tonsillar hypertrophy or exudate. Uvula midline. Airway patent. NECK: Trachea midline. No JVD or lymphadenopathy. Supple, nontender, no meningeal signs. CARDIOVASCULAR: Regular rate and rhythm without murmurs, gallops, or rubs. RESPIRATORY: Clear to auscultation. Breath sounds equal bilaterally. Few wheezes , No rales, or rhonchi. GASTROINTESTINAL: Abdomen soft, non-tender, nondistended. No hepato-splenomegaly , or palpable masses. No guarding. MUSCULOSKELETAL: Extremities without clubbing, cyanosis, or edema. No joint tenderness, effusion, or edema noted. No calf tenderness. Negative Homans sign bilaterally. NEUROLOGICAL: Awake and alert. Cranial nerves II through XII intact. Motor and sensory grossly within normal limits. Five out of 5 muscle strength in all muscle groups. Normal Assessment & Plan Diagnosis: (1) Vomiting and diarrhea ICD Codes: R11.10 - Vomiting, unspecified; R19.7 - Diarrhea, unspecified Status: Acute Plan: Follow stool studies Stop IV Fluids Continue PO Flagyl for now Lilo Munson MD Jul 28, 2017 11:20
[2017-07-28 11:26] LABS: CALCIUM 8.4 MG/DL (8.5-10.1)
[2017-07-28 11:30] LABS: CREATININE 0.49 MG/DL (0.50-1.00)
[2017-07-28] MEDS ORDERED: METR-1 PO (11:49)
[2017-07-28] MEDS ORDERED: CHOL4POW4 PO (11:49)
[2017-07-28 11:50] VITALS: BP 131/60; PULSE 76; RESP 20; TEMP 98.1; O2SAT 98
[2017-07-28] MEDS: METOPROLOL TARTRATE 25 MG TAB PO SCH (11:50)
--- NOTE | 2017-07-28 11:50 | HHI.DCPOC ---
Discharge Care Plan Diagnosis: (1) Gastritis Goals to Promote Your Health * To prevent worsening of your condition and complications * To maintain your health at the optimal level Directions to Meet Your Goals Take your medications as prescribed Follow your dietary instruction Follow activity as directed Keep your appointments as scheduled Take your immunizations and boosters as scheduled If your symptoms worsen call your PCP, if no PCP go to Urgent Care Center or Emergency Room Smoking is Dangerous to Your Health. Avoid second hand smoke Call the 24-hour hour crisis hotline for domestic abuse at Amarilis Tuttle MD Jul 28, 2017 11:50
[2017-07-28] MEDS: SODIUM CHLORIDE 0.9% FLUSH 10 ML FLUSH IV FLUSH SCH (11:51)
[2017-07-28] MEDS: ASPIRIN 81 MG CHEW TAB CHEW SCH (11:51)
[2017-07-28] MEDS: LACTOBACILLUS ACIDOPHILUS TAB PO SCH (11:51)
--- NOTE | 2017-07-28 11:52 | HHI.DS ---
Discharge Summary Admission Date Jul 25, 2017 at 14:23 Discharge Date: Jul 28, 2017 Admitting Diagnosis sepsis, hypokalemia, hypoxia (1) Gastritis ICD Code: K29.70 - Gastritis, unspecified, without bleeding (2) Hypokalemia ICD Code: E87.6 - Hypokalemia Status: Acute Procedures none Brief History - From Admission 77-year-old female with h/o CAD, HTN, HLD, PM placed states she went on a cruise and now she's been having diarrhea, cough, congestion, nausea and general ill feeling. Symptoms started 2.3 days and worsened last night. Main worsening symptoms diarrhea many times cant count. Diarrhea is nonbloody. Was worse overnight. Today has diarrhea 2x. Some fevers associated today . no chills. She denies other concurrent complaints. She states no specific known sick contacts. She feels worse when she moves around. She denies other modifying factors. Severity is progressive. Duration is couple of days worsening last night. CBC/BMP: 07/27/17 0930 07/28/17 1050 Significant Findings Laboratory Tests Test 07/25/17 13:04 07/25/17 21:41 07/26/17 07:07 07/26/17 12:20 Neutrophils (%) (Auto) 93.2 % (16.0-70.0) 73.9 % (16.0-70.0) Lymphocytes (%) (Auto) 4.3 % (9.0-44.0) Lymphocytes # (Auto) 0.3 TH/MM3 (1.0-4.8) 0.8 TH/MM3 (1.0-4.8) Blood Urea Nitrogen 28 MG/DL (7-18) 22 MG/DL (7-18) Random Glucose 135 MG/DL (74-106) Alkaline Phosphatase 132 U/L (45-117) Potassium Level 2.7 MEQ/L (3.5-5.1) 2.6 MEQ/L (3.5-5.1) Estimat Glomerular Filtration Rate 62 ML/MIN (>89) Lactic Acid Level 3.1 mmol/L (0.4-2.0) Hematocrit 34.7 % (35.0-46.0) Calcium Level 7.8 MG/DL (8.5-10.1) Chloride Level 108 MEQ/L (98-107) Test 07/27/17 09:30 07/28/17 10:50 Red Blood Count 3.91 MIL/MM3 (4.00-5.30) Hemoglobin 10.7 GM/DL (11.6-15.3) Hematocrit 32.5 % (35.0-46.0) Neutrophils (%) (Auto) 72.4 % (16.0-70.0) Calcium Level 8.1 MG/DL (8.5-10.1) 8.4 MG/DL (8.5-10.1) Potassium Level 3.2 MEQ/L (3.5-5.1) Chloride Level 111 MEQ/L (98-107) 111 MEQ/L (98-107) Blood Urea Nitrogen 6 MG/DL (7-18) Creatinine 0.49 MG/DL (0.50-1.00) Imaging Last Impressions Chest X-Ray 07/25/17 1245 Signed Impressions: Service Date/Time: Tuesday, July 25, 2017 12:48 - CONCLUSION: 1. No focal consolidation. Minimal basilar atelectasis. Pacer leads in right atrium and right ventricle. Cardiomegaly. Brandt Valenzuela MD PE at Discharge GENERAL: This is a well-nourished, well-developed patient, in no apparent distress. CARDIOVASCULAR: Regular rate and rhythm without murmurs, gallops, or rubs. RESPIRATORY: Clear to auscultation. Breath sounds equal bilaterally. No wheezes , rales, or rhonchi. GASTROINTESTINAL: Abdomen soft, non-tender, nondistended. Normal active bowel sounds MUSCULOSKELETAL: Extremities without clubbing, cyanosis, or edema. NEURO: Alert & Oriented x4 to person, place, time, situation. Moves all ext x4 Pt update on day of discharge Patient seen and evaluated. For diarrhea, overall improved. The potassium is improved as well Discharge plan discussed with patient she will be discharged home Hospital Course This patient is a 77-year-old female came in with complaints of diarrhea and evidence of sepsis. Patient had significant enteritis which was treated empirically with antibiotics (metronidazole). Patient has improved. She required IV hydration. She was seen by ID. Recommended for continuing empiric metronidazole. Pt Condition on Discharge: Good Discharge Disposition: Discharge Home Discharge Time: <= 30 minutes Discharge Instructions DIET: Follow Instructions for: As Tolerated, No Restrictions Additional Diet Instructions: bland Activities you can perform: Regular-No Restrictions Follow up Referrals: PCP Follow-up - 1 Week New Medications: Cholestyramine (Cholestyramine) 4 Gm/Pkt Powd 2 GM PO QID PRN for DIARRHEA, #10 PACKET 1 packet contains 4 grams of cholestyramine. Metronidazole (Flagyl) 500 Mg Tab 500 MG PO Q8H for Diarrhea, #30 TAB Continued Medications: Aspirin (Aspir-81) 81 Mg Tab 81 MG PO DAILY, TAB Metoprolol Tartrate 25 mg (Metoprolol Tartrate 25 mg) 25 Mg Tab 12.5 MG PO BID Pravachol (Pravachol) 40 Mg Tab 20 MG PO DAILY Amarilis Tuttle MD Jul 28, 2017 11:52
[2017-07-28] MEDS ORDERED: PHARMACY ORDERED LAB ONE (13:45)
== END 2017-07-28 14:05 | disposition home or self-care (01) | DRG 871 ==
LOC: PHED 11:55 → PHEDA 14:23 → PH3A 16:20
PROVIDERS: ADMIT Hospitalist; ATTEND Hospitalist
DX: A41.9 Sepsis, unspecified organism (principal); J96.01 Acute respiratory failure with hypoxia; K52.9 Noninfective gastroenteritis and colitis, unspecified; K29.70 Gastritis, unspecified, without bleeding; I11.9 Hypertensive heart disease without heart failure; E78.5 Hyperlipidemia, unspecified; I25.10 Atherosclerotic heart disease of native coronary artery without angina pectoris; E87.6 Hypokalemia; J39.9 Disease of upper respiratory tract, unspecified; Z95.5 Presence of coronary angioplasty implant and graft; Z95.0 Presence of cardiac pacemaker
CPT/HCPCS: 71045; 80048; 80053; 83605; 83735; 84100; 85025; 85610; 85730; 87040; 87207; 87328; 87329; 87493; 87804; 96365; 96368; 96375; J0692; J1650; J2405; J3370; J3480; J7030; J7040; J7050